=== PATIENT | male | born 1940 | race African-American/Black ===

== ENCOUNTER → 2017-01-15 | Outpatient (CLI) | payer MEDICARE, BC ==
[~2017-01-15] MED LIST: AMLODIPINE-ATO1 EAC5 PO; ASPIRIN EC81 M1 PO; CARVEDILOL25 MG PO; COREG; CYMBALTA PO; DULOXETINE HCL60 MG PO; FLEET GLYC1 SUPP.REC PR; FUROSEMIDE40 MG PO; GLYBURIDE-METFO1 TA3 PO; HYDROCODON-ACE1 EAC5 PO; INVOKANA300 MG PO; KLOR-CON SPRIN10 MEQ PO; LEVAQUIN750 MG PO; LOVENOX40 MG/0.4 INJ; LUNESTA2 M1 PO; METHOCARBAMOL500 MG PO; MINERAL OIL30 ML PO; MIRALAX17 G2 PO; NABUMETONE500 M1 PO; NORVASC10 MG PO; OXYCONTIN15 MG PO; PROTONIX PO; RANITIDINE HCL150 M1 PO; STOOL SOFTENER250 MG PO; TAMIFLU75 M1 PO; ZANTAC150 M1 PO; ZESTRIL40 MG PO
[2017-01-15 10:41] LABS: POC - CREATININE 1.68 mg/dL (0.64-1.27)
== END | disposition home or self-care (01) ==
LOC: CCAT 09:21
PROVIDERS: Internal Medicine Hematology & Oncology
DX: C25.1 Malignant neoplasm of body of pancreas (principal); G89.3 Neoplasm related pain (acute) (chronic); E11.42 Type 2 diabetes mellitus with diabetic polyneuropathy
CPT/HCPCS: 82565

== ENCOUNTER 2017-03-09 12:13 | Emergency (ER) | payer OTHER, MEDICARE, BC ==
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
== END 2017-03-09 14:39 | disposition home or self-care (01) ==
LOC: CED 12:13
DX: S09.90XA Unspecified injury of head, initial encounter (principal); S16.1XXA Strain of muscle, fascia and tendon at neck level, initial encounter; Z79.82 Long term (current) use of aspirin; Z79.899 Other long term (current) drug therapy; Z88.5 Allergy status to narcotic agent; V43.52XA Car driver injured in collision with other type car in traffic accident, initial encounter
CPT/HCPCS: 70450; 71010; 72125; 96374; 99284; J1170